=== PATIENT | female | born 1990 | race Caucasian/White ===

== ENCOUNTER 2021-10-13 17:52 | Day surgery (SDC) | payer BC ==
[2021-10-13] MEDS ORDERED: hydrALAZINE 20 MG/ML VIAL SLOW IVP PRN (18:43)
== END 2021-10-13 21:11 | disposition home or self-care (01) ==
LOC: CSHLD/OP 17:52
PROVIDERS: ATTEND Obstetrics & Gynecology
DX: O36.8130 Decreased fetal movements, third trimester, not applicable or unspecified (principal); O24.410 Gestational diabetes mellitus in pregnancy, diet controlled; O13.3 Gestational [pregnancy-induced] hypertension without significant proteinuria, third trimester; Z3A.37 37 weeks gestation of pregnancy; Z86.73 Personal history of transient ischemic attack (TIA), and cerebral infarction without residual deficits; Z79.899 Other long term (current) drug therapy; Z91.048 Other nonmedicinal substance allergy status
CPT/HCPCS: 76819

== ENCOUNTER 2021-10-21 05:23 | Inpatient (IN) | payer BC ==
[2021-10-20 13:12] LABS: Hemoglobin 12.5 g/dL (12.0-15.5); Mean Corpuscular HGB CONC 33.4 g/dL (32.0-36.0); Mean Corpuscular Hemoglobin 27.1 pg (27.0-33.0); Mean Platelet Volume 10.3 fl (7.4-10.4); Platelet Count 299 10x3/uL (150-450); RBC Distribution Width 14.1 % (11.5-14.5); Red Blood Cell (RBC) Count 4.62 10x6/uL (3.90-5.03); White Blood Cell (WBC) Count 12.1 10x3/uL (3.5-10.5)
[2021-10-20 13:43] LABS: Hep B Surf Ag Non-Reactive S/CO (NonReactive)
[2021-10-20 14:08] LABS: HBSAg Index 0.17 S/CO (0-0.99)
[2021-10-20 14:57] LABS: Syphilis Antibody Nonreactive (Nonreactive); Syphilis Antibody Index 0.03 S/CO (<1.00 Non-Reactive)
[2021-10-21] MEDS ORDERED: hydrALAZINE 20 MG/ML VIAL SLOW IVP PRN (05:41)
[2021-10-21] MEDS ORDERED: ceFAZolin 2 GM/Dextrose 50 ML 2 GM in Premix Bag 1 BAG IVPB SCH (05:41)
[2021-10-21] MEDS ORDERED: Promethazine HCl 25 MG/ML VIAL IM PRN ×2 (05:41→07:04)
[2021-10-21] MEDS ORDERED: Ondansetron PF 4 MG/2 ML Vial IVP PRN ×2 (05:41→07:04)
[2021-10-21] MEDS ORDERED: Bicitra 30 ML UDCUP PO PRN (05:41)
[2021-10-21] MEDS ORDERED: Famotidine/PF 20 mg/2ml Vial SLOW IVP PRN (05:41)
[2021-10-21 05:50] VITALS: BMI 41.5
[2021-10-21] MEDS: Lactated Ringer's 1,000 ML IV SCH ×3 (06:20→22:45)
[2021-10-21] MEDS ORDERED: Promethazine HCl 25 MG SUPP PR PRN (07:04)
[2021-10-21] MEDS ORDERED: Naloxone HCl 0.4 mg/ml Vial IVP PRN ×2 (07:04)
[2021-10-21] MEDS ORDERED: Meperidine HCl/PF 25 MG/ML VIAL SLOW IVP PRN ×2 (07:04→10:50)
[2021-10-21] MEDS ORDERED: Moisturizing Cream (Eucerin) 113 GM JAR TOP PRN (07:04)
[2021-10-21] MEDS ORDERED: Naloxone HCl 0.4 mg/ml Vial IV PRN (07:04)
[2021-10-21] MEDS ORDERED: Fentanyl 100 MCG/2 ML VIAL SLOW IVP PRN ×2 (07:04→10:50)
[2021-10-21] MEDS ORDERED: Ondansetron HCl/PF 4 MG/2 ML Vial IVP PRN ×2 (07:04→10:50)
[2021-10-21] MEDS ORDERED: Communication Order-Pharmacy FS SCH (07:15)
[2021-10-21] MEDS ORDERED: Morphine PF 10 MG/10 ML VIAL ONE (07:19)
[2021-10-21] MEDS ORDERED: Oxytocin 10 UNITS/ML VIAL ONE (07:19)
[2021-10-21] MEDS ORDERED: Metoclopramide HCl 10 MG/2 ML VIAL ONE (07:20)
[2021-10-21] MEDS ORDERED: Phenylephrine 40 MG/NS 250 ML 250 ML ONE (07:20)
[2021-10-21] MEDS ORDERED: Ondansetron PF 4 MG/2 ML Vial ONE (07:20)
[2021-10-21] MEDS ORDERED: Dexamethasone 4 mg/ml Vial ONE (07:20)
[2021-10-21] MEDS ORDERED: Ketorolac Tromethamine 30 MG/ML VIAL ONE (07:20)
[2021-10-21] MEDS: diphenhydrAMINE 50 MG/ML VIAL IVP PRN ×2 (10:14→17:53)
[2021-10-21] MEDS ORDERED: PHENYLEPHRINE-NS 100 MCG/ML 10 ML SYRINGE ONE (10:23)
[2021-10-21] MEDS ORDERED: Fentanyl 100 MCG/2 ML VIAL ONE (11:00)
[2021-10-21] MEDS ORDERED: Meperidine HCl/PF 25 MG/ML VIAL ONE (11:04)
[2021-10-21] MEDS ORDERED: Misoprostol 200 MCG TAB PR PRN (11:19)
[2021-10-21] MEDS ORDERED: Boostrix 0.5 ML (Tdap) VIAL IM ONE (11:19)
[2021-10-21] MEDS ORDERED: Lanolin Ointment 7 GM TUBE TOP PRN (11:19)
[2021-10-21] MEDS ORDERED: NS w/ Oxytocin 30 units 500 ML IV SCH (11:19)
[2021-10-21] MEDS ORDERED: Bisacodyl 10 MG SUPP PR PRN (11:19)
[2021-10-21] MEDS ORDERED: Methylergonovine 0.2 MG/ML VIAL IM PRN (11:19)
[2021-10-21] MEDS ORDERED: Ketorolac Tromethamine 30 MG/ML VIAL IVP PRN (14:00)
[2021-10-21] MEDS: Ketorolac Tromethamine 30 MG/ML VIAL IVP PRN (22:20)
[2021-10-21] MEDS: Docusate 100 MG CAP PO SCH (22:21)
[2021-10-22 04:19] LABS: Hemoglobin 10.6 g/dL (12.0-15.5); Mean Corpuscular HGB CONC 33.9 g/dL (32.0-36.0); Mean Corpuscular Hemoglobin 27.9 pg (27.0-33.0); Mean Corpuscular Volume 82.4 fl (81.6-98.3); Mean Platelet Volume 10.1 fl (7.4-10.4); Platelet Count 233 10x3/uL (150-450); RBC Distribution Width 13.9 % (11.5-14.5); White Blood Cell (WBC) Count 15.7 10x3/uL (3.5-10.5)
[2021-10-22] MEDS: Ketorolac Tromethamine 30 MG/ML VIAL IVP PRN (05:04)
[2021-10-22] MEDS: Simethicone Chewable 80 MG TAB PO PRN ×2 (05:05→09:19)
[2021-10-22] MEDS: Lactated Ringer's 1,000 ML IV SCH ×3 (08:44→19:32)
[2021-10-22] MEDS ORDERED: Aspirin 81 mg Enteric Coated Tablet PO SCH ×2 (09:00)
[2021-10-22] MEDS: Aspirin 81 mg Enteric Coated Tablet PO SCH (09:19)
[2021-10-22] MEDS: Prenatal Vitamin 1 TAB PO SCH (09:19)
[2021-10-22] MEDS: HYDROcodone/Acetaminophen 5/325 mg Tablet PO PRN ×3 (09:20→19:44)
[2021-10-22] MEDS: Docusate 100 MG CAP PO SCH ×2 (09:20→19:44)
[2021-10-22] MEDS: Ibuprofen 800 MG TAB PO SCH (23:11)
[2021-10-23] MEDS: HYDROcodone/Acetaminophen 5/325 mg Tablet PO PRN ×3 (00:13→12:24)
[2021-10-23] MEDS: Ibuprofen 800 MG TAB PO SCH (05:32)
[2021-10-23] MEDS: Docusate 100 MG CAP PO SCH (08:53)
[2021-10-23] MEDS: Prenatal Vitamin 1 TAB PO SCH (08:54)
[2021-10-23] MEDS: Aspirin 81 mg Enteric Coated Tablet PO SCH (08:54)
[2021-10-23 12:33] VITALS: BP 143/92; TEMP 98.1
== END 2021-10-23 13:20 | disposition home or self-care (01) | DRG 788 ==
LOC: CSHLD 05:23 → CSHPP 11:15
PROVIDERS: ADMIT Obstetrics & Gynecology; ATTEND Obstetrics & Gynecology
PROC: 10D00Z1 Extraction of Products of Conception, Low, Open Approach (ICD-10-PCS; principal; 2021-10-21)
DX: O32.8XX0 Maternal care for other malpresentation of fetus, not applicable or unspecified (principal); Z3A.39 39 weeks gestation of pregnancy; Z37.0 Single live birth; Z86.73 Personal history of transient ischemic attack (TIA), and cerebral infarction without residual deficits; Z20.822 Contact with and (suspected) exposure to COVID-19; O69.81X0 Labor and delivery complicated by cord around neck, without compression, not applicable or unspecified; O24.429 Gestational diabetes mellitus in childbirth, unspecified control; Z79.899 Other long term (current) drug therapy; Z79.82 Long term (current) use of aspirin; Z91.048 Other nonmedicinal substance allergy status; O16.4 Unspecified maternal hypertension, complicating childbirth
CPT/HCPCS: 36415; 85027; 86780; 86850; 86900; 86901; 87340; J0690; J1100; J1200; J1885; J2175; J2274; J2405; J2590; J2765; J3010; J7120; S0028; U0003; U0005